=== PATIENT | male | born 1945 | race Caucasian/White ===

== ENCOUNTER 2017-06-30 06:28 | Outpatient (CLI) | payer MEDICARE, BC ==
[~2017-06-30] VITALS: Ht 182.9 cm; Wt 90.9 kg
--- NOTE | ~2017-06-30 | HEMODYNAMI ---
PATIENT:EZRA DAN MEDICAL RECORD: [id number] : 49 LOCATION:[facility] ADMISSION DATE: 06/30/17 Generatedon:06/30/20179:13 Patient name: EZRA DAN Patient #: [id number] SSN: : 1945 Date of study: 06/30/2017 Page: Of Hemodynamic Procedure Report Patient Data Patient Demographics Procedure consent was obtained First Name: EZRA Gender: Male Last Name: SY : 1945 Middle Initial: E Age: 71 year(s) Patient #: [id number] Race: Unknown Additional ID: [id number] Contact details [address]: [address] [place] [address] State: [place] City: [place] Zip code: [address] Admission Admission Data Admission Date: 06/30/2017 Admission Time: 6:28 Procedure Procedure Types Cath Procedure Diagnostic Procedure LHC LHC w/Coronaries Miscellaneous Procedures Moderate Sedation up to 30 minutes Procedure Description Procedure Date Procedure Date: 06/30/2017 Procedure Start Time: 8:54 Procedure End Time: 9:10 Procedure Staff Name Function Tyler Riddle MD Performing Physician Rodriguez Churchill RN Nurse Lanny Banegas RT Monitor Alfred Bruno RT Scrub Radhakristina Allison RT Scrub Procedure Data Cath Procedure Fluoroscopy Diagnostic fluoroscopy Total fluoroscopy Time: 5.2 time: 5.2 min min Diagnostic fluoroscopy Total fluoroscopy dose: 906 dose: 906 mGy mGy Contrast Material Contrast Material Type Amount (ml) Isovue 300 47 Entry Location Entry Primary Successful Side Size Upsize Upsize Entry Closure Keita ccessful Closure Location (Fr) 1 (Fr) 2 (Fr) Remarks Device Remarks Radial Right 6 Fr Mechanical artery Short Compression Estimated blood loss: 5 ml Diagnostic catheters Device Type Used For End Catheter Placement Terumo 5Fr Eleazar 110cm Multi-vessel catheter Angiography Procedure Complications No complications Procedure Medications Medication Administration Route Dosage 0.9% NaCl I.V. 100 ml/hr Oxygen NC 2 l/min Heparin Flush Bag added to field 2 bags (1000units/500ml NS) Lidocaine 2% added to field 20 Radial Cocktail added to field 1 syringe (Verapomil 2mg/Nitro 400mcg/Heparin 1500units) Versed I.V. 2 mg Fentanyl I.V. 25 mcg Radial Cocktail I.A. 1 syringe (Verapomil 2mg/Nitro 400mcg/Heparin 1500units) Hemodynamics Rest Heart Rate: 46 (bpm) Pressure Samples Time Site Value (mmHg) Purpose Heart Use Rate(bpm) 9:00 LV 111/4,10 Snapshot 56 9:00 LV 135/7,15 EDP 51 9:00 AO 121/71(92) Pullback 51 9:00 LV 124/7,11 Pullback 51 Gradients Valve Time Site 1 Site 2 Mean SEP/DFP Peak To Heart Use (mmHg) (sec/min) Peak Rate (mmHg) (bpm) Aortic 9:00 LV AO 4 13 3 51 124/7,11 121/71(92) Calculations Valve P-P Mean Valve Index Valve Source Name Gradient Area Flow (cm2) Aortic 3 4 3 4 Snapshots Pre Cath Intra NCS Post Cath Vital Signs Time Heart Resp SPO2 etCO2 [id number] NIBP (mmHg) Rhythm Pain Sedation Rate (ipm) (%) (mmHg) (mmHg) Status Level (bpm) 8:47:08 46 16 97 0 0 183/89(152) NSR 0 (11) 10(A) , No pain 8:51:56 44 19 98 0 0 162/88(135) NSR 0 (11) 10(A) , No pain 8:56:35 47 20 99 0 0 140/85(111) NSR 0 (11) 10(A) , No pain 9:01:18 52 23 94 0 0 135/75(99) NSR 0 (11) 9(A) , No pain 9:06:00 48 17 93 0 0 134/77(95) NSR 0 (11) 9(A) , No pain 9:11:20 48 14 96 0 0 151/82(112) NSR 0 (11) 10(A) , No pain Medications Time Medication Route Dose Verified Delivered Reason Notes E ffectiveness by by 8:44:43 0.9% NaCl I.V. 100 Rodriguez Rodriguez Per ml/hr Zhao Churchill physician RN RN 8:44:58 Oxygen NC 2 l/min Rodriguez Rodriguez Per Zhao soni RN RN 8:45:17 Heparin Flush added 2 bags Rodriguez Rodriguez used for Bag to Zhao Churchill procedure (1000units/500ml field RN RN NS) 8:45:32 Lidocaine 2% added 20ml Rodriguez Rodriguez for local to vial Lorigan Zhao anesthetic field RN RN 8:45:46 Radial Cocktail added 1 Rodriguez Rodriguez used for (Verapomil to syringe Lorigan Zhao procedure 2mg/Nitro field RN RN 400mcg/Heparin 1500units) 8:56:15 Versed I.V. 2 mg Rodriguez Rodriguez for sedation Zhao Churchill RN RN 8:56:28 Fentanyl I.V. 25 mcg Rodriguez Rodriguez for sedation Zhao Churchill RN RN 8:58:36 Radial Cocktail I.A. 1 Rodriguez Tyler for (Verapomil syringe Zhao Riddle MD vasodilation 2mg/Nitro RN 400mcg/Heparin 1500units) Procedure Log Time Note 8:25:51 Alfred LANDRUM(R) sent for patient. Start room use. 8:32:52 Time tracking: Regular hours 8:32:56 Plan of Care:Hemodynamics will remain stable., Cardiac rhythm will remain stable., Comfort level will be maintained., Respiratory function will remain adequate., Patient/ family verbilizes understanding of procedure., Procedure tolerated without complication., Recovers from procedure without complications.. 8:39:58 Patient received from Pre/Post Procedure Room to [facility] 1 Alert and oriented. Tansferred to table in Supine position. 8:40:00 Warm blankets applied, and josé luis hugger turned on for patient comfort. 8:40:01 Correct patient and procedure confirmed by team. 8:40:03 Signed procedure consent form obtained from patient. 8:40:03 ECG and BP/O2 sat monitors applied to patient. 8:44:43 0.9% NaCl 100 ml/hr I.V. was administered by Rodriguez Churchill RN; Per physician; 8:44:58 Oxygen 2 l/min NC was administered by Rodriguez Churchill RN; Per physician; 8:45:17 Heparin Flush Bag (1000units/500ml NS) 2 bags added to field was administered by Rodriguez Churchill RN; used for procedure; 8:45:32 Lidocaine 2% 20ml vial added to field was administered by Rodriguez Churchill RN; for local anesthetic; 8:45:34 Vital chart was started 8:45:46 Radial Cocktail (Verapomil 2mg/Nitro 400mcg/Heparin 1500units) 1 syringe added to field was administered by Rodriguez Churchill RN; used for procedure; 8:47:21 Rhythm: sinus bradycardia 8:47:32 Full Disclosure recording started 8:47:46 H&P Date Dictated: 06/29/2017 Within 30 days and on chart., H&P Addendum completed by physician on day of procedure. (MUST COMPLETE FOR ALL OUTPATIENTS). 8:47:47 Pre-procedure instructions explained to patient. 8:47:47 Pre-op teaching completed and patient verbalized understanding. 8:48:02 Family in patients room. 8:48:05 Is the patient allergic to Iodine/contrast media? No. 8:48:07 Is patient on blood thinner?Yes 8:48:10 ACC The patient was administered the following blood thiners within the last 24 hours: ACCPlavix 8:48:16 Patient diabetic? No. 8:48:18 Previous problem with sedation/anesthesia? No ? 8:48:19 Snore? Yes 8:48:20 Sleep apnea? Yes 8:48:21 Deviated septum? No 8:48:22 Opens mouth fully? Yes 8:48:23 Sticks out tongue? Yes 8:48:25 Airway obstruction? No ? 8:48:29 Dentures? Yes IN 8:48:34 Pre procedure: right dorsailis pedis pulse 1+ Palpable, but thready & weak; easily obliterated 8:48:36 Modified Jomar's test Ulnar < 7 seconds 8:48:38 Patient pain scale 0/10 ?. 8:48:47 IV patent on arrival in left forearm with 0.9% NaCl at [facility]. 8:48:49 Lab results completed and on chart. 8:48:52 Right Radial & Right Groin area was prepped with chlora-prep and draped in sterile fashion 8:48:54 Alarms reviewed by Raf Trejo 8:48:55 Sharps counted by scrub and verified by R.NEllie 8:48:59 --------ALL STOP TIME OUT------ 8:48:59 Final Timeout: patient, procedure, and site verified with staff and physician. All members of the team are in agreement. 8:49:06 Right Radial & Right Groin site verified by team. 8:49:09 Physical assessment completed. ASA score P 2 - A patient with mild systemic disease as per Tyler Riddle MD. 8:49:13 Sedation plan: IV Moderate Sedation Versed, Fentanyl 8:50:11 Use device set Radial Dx 8:50:12 Acist Syringe opened to sterile field. 8:50:13 Medline Cath Pack opened to sterile field. 8:50:13 Bag Decanter opened to sterile field. 8:50:16 Terumo 6Fr Slender Glidesheath opened to sterile field. 8:50:16 St Jass 260cm J .035 wire opened to sterile field. 8:50:17 Acist Hand Control opened to sterile field. 8:50:17 Acist Manifold opened to sterile field. 8:50:18 Tegaderm 4 x 4 opened to sterile field. 8:50:18 MBrace Wrist Support opened to sterile field. 8:54:43 Procedure started. 8:54:48 Local anesthetic to right radial artery with Lidocaine 2% by Tyler Riddle MD.INITIAL ACCESS ONLY 8:55:26 A 6 Fr Short sheath was inserted into the Right Radial artery 8:55:53 Baseline sample Acquired. 8:56:15 Versed 2 mg I.V. was administered by Rodriguez Churchill RN; for sedation; 8:56:28 Fentanyl 25 mcg I.V. was administered by Rodriguez Churchill RN; for sedation; 8:57:57 A Terumo 5Fr Eleazar 110cm catheter was advanced over the wire and used for Multi-vessel Angiography. 8:58:36 Radial Cocktail (Verapomil 2mg/Nitro 400mcg/Heparin 1500units) 1 syringe I.A. was administered by Tyler Riddle MD; for vasodilation; 8:59:05 Zero performed for pressure channel P1 9:00:34 LV hemodynamics recorded. 9:00:36 LV gram done using PASTRANA 9:00:38 Injector settings: Ml/sec: 5, Volume: 15, 9:01:21 LCA angiography performed. 9:01:24 Injector settings: Ml/sec: 3, Volume: 6, 9:06:42 RCA angiography performed. 9:06:46 Injector settings: Ml/sec: 3, Volume: 6, 9:08:48 Catheter removed. 9:09:19 Terumo TR Band Standard opened to sterile field. 9:09:20 TR band inflated with 10cc of air. 9:09:35 Sheath removed intact; hemostasis achieved with Mechanical Compression to the Right Radial artery. 9:09:38 Procedure ended.(Physican Out) 9:09:48 Fluoroscopy time 05.20 minutes. 9:10:00 Flurop Dose total: 906 9:10:00 Fluoroscopy dose: 906 mGy 9:10:04 Contrast amount:Isovue 300 47ml. 9:10:06 Sharps counted by scrub and verified by R.N. 9:10:06 Insertion/operative site no bleeding no hematoma. 9:10:13 Post right radial artery:stable 9:10:15 Post Procedure Pulses reassessed and unchanged 9:10:18 Post procedure rhythm: unchanged. 9:10:20 Estimated blood loss: 5 ml 9:10:23 Post procedure instruction explained to patient.Patient verbalizes understanding. 9:10:23 Patient needs reinforcement of post procedure teaching. 9:10:37 Procedure type changed to Cath procedure, Diagnostic procedure, LHC, LHC w/Coronaries, Miscellaneous Procedures, Moderate Sedation up to 30 minutes 9:10:38 Procedure and supply charges have been captured, reviewed, submitted and are correct. 9:10:42 Procedure Complication : No complications 9:10:45 Vital chart was stopped 9:10:45 See physician's report for complete and final results. 9:10:53 Report given to Pre/Post Procedure Room. 9:10:56 Patient transfered to Pre/Post Procedure Room with Stretcher. 9:10:58 Procedure ended. 9:10:58 Full Disclosure recording stopped 9:11:04 End room use (Document Last) Device Usage Item Name Manufacture Quantity Catalog Hospital Part Current Minimal Lot# / Number Charge Number Stock Stock Serial# Code Acist Acist 1 81683 337955 [id number] 20 Syringe [employer] Medline Cardinal 1 [id number] 75074 629568 5 Cath Pack Health Bag Microtek 1 979302 97422 687488 5 [employer] Terumo 6Fr Terumo 1 [id number] 905011 644519 627900 [address] J[address] St Jass 1 [id number] 147510 510992 090984 30 260cm J .035 wire Acist Hand Acist 1 08766 590995 470459 159550 5 Control [employer] Inc Acist Acist 1 68071 604900 255726 525330 5 Manifold [employer] Inc Tegaderm 4 3M 1 1626W 860293 400968 800378 5 x 4 MBrace Advanced 1 140-0250-00 713133 55417 981588 5 Wrist Vascular Support [employer] Terumo 5Fr Terumo 1 36-4842 270948 486800 024601 5 Eleazar 110cm catheter Terumo TR Terumo 1 [id number] 268668 435799 40 Band Standard Signature Audit [place] Stage Time Signature Unsigned Intra-Procedure 06/30/2017 Lanny Banegas 9:13:27 AM RT(R) Signatures Monitor : Lanny Banegas RT Signature : Date : Time : [place] [id number] JU[place] SPANN, [place] [id number]
[~2017-06-30 06:28] MED LIST: ASPIRIN325 MG PO; BUSPIRONE HCL7.5 MG PO; CARDURA2 MG PO; CARTIA XT300 MG PO; CELEXA20 MG PO; COREG6.25 MG PO; COZAAR100 MG PO; HYDROCHLOROTHIA25 MG PO; LEXAPRO10 MG PO; MOBIC7.5 MG PO; OMEPRAZOLE20 M1 PO; REVATIO20 MG PO; TIROSINT88 MCG PO; ZANAFLEX4 MG PO; ZOCOR40 MG PO; ZYLOPRIM100 MG PO
[2017-06-30 07:14] LABS: BASOPHILS 0.2 % (0-2); EOSINOPHILS 2.6 % (0-7); HEMATOCRIT 45.2 % (42.0-54.0); HEMOGLOBIN 15.1 g/dL (13.5-17.5); IMMATURE GRANULOCYTES 0.2 % (0-5); LYMPHOCYTES 13.8 % (15-50); MCH 30.1 pg (26.0-34.0); MCHC 33.4 g/dL (31.0-37.0); MONOCYTES 14.2 % (2-11); RBC 5.02 10x6/uL (4.20-6.10); RDW 13.8 % (11.5-14.5); WBC 5.4 10x3/uL (4.8-10.8)
[2017-06-30 07:15] LABS: PLATELET COUNT 195 10x3/uL (130-400)
[2017-06-30 07:22] LABS: CALCIUM 9.4 mg/dL (8.5-10.1); CARBON DIOXIDE 24.7 mmol/L (21.0-32.0); CREATININE - SERUM 1.1 mg/dL (0.6-1.3); POTASSIUM - SERUM 4.7 mmol/L (3.5-5.1)
[2017-06-30 07:24] VITALS: BP 159/77; Ht 182.9 cm; Wt 90.9 kg
[2017-06-30] MEDS ORDERED: VITAMIN D3400 UNI1 PO (07:33)
--- NOTE | 2017-06-30 09:37 | NUR ---
0920 RECEIVED PT FROM PROCESS DEVELOPMENT ENGINEER. PT DENIES ANY C/O CHEST PAIN OR NAUSEA. IV PATENT AND INFSUING PER ORDERS WITH 700 CC LTC OF NS. TR BAND TO RIGHT WRIST IS CDI, NO BLEEDING OR HEMATOMA NOTED AT CATH SITE. WRIST IMMOBILIZER IN PLACE, PT INSTRUCTED TO LIMIT USE OF RIGHT HAND AND NOT TO BEND OR FLEX WRIST AND PT VERBALIZES UNDERSTANDING. AT BEDSIDE, CALL LIGHT IN REACH, PT INSTRUCTED TO CALL FOR NEEDS. 09 DR KAMLESH WISE, SPEAKING WITH PT AND . 0935 TR BAND REMAINS FREE FROM BLEEDING OR HEMATOMA, PT DENIES ANY C/O. SANDWICH AND PO FLUIDS SERVED.
--- NOTE | 2017-06-30 10:10 | NUR ---
0950 PT JOSE M PO FLUIDS AND SANDWICH WITH NO C/O. NO BLEEDING AT CATH SITE. PT DENIES ANY C/O CHEST PAIN. AT BEDSIDE, CALL LIGHT IN REACH.
--- NOTE | 2017-06-30 10:59 | NUR ---
1015 TR BAND DEFLATION STARTED WTIH NO BLEEDING OR HEMATOMA NOTED. WILL CONTINUE TO MONITOR.
--- NOTE | 2017-06-30 11:20 | NUR ---
1045 DC INSTRUCTIONS HAVE BEEN REVIEWED WITH PT AND WHO VERBALIZE UNDERSTANDING. IV DC'D WITH CATH INTACT. TR BAND IS DEFLATED WITH NO BLEEDING OR HEMATOMA NOTED AT SITE. 2X2 AND TEGADERM APPLIED, WRIST IMMOBLIZER IN PLACE. PT HAS VOIDED 600 CC CLEAR YELLOW URINE USING URINAL. 1105 PT AMBULATED TO THE BATROOM, STATES URINATED AGAIN. NO BLEEDING OR HEMATOMA AT CATH SITE. PT DENIES ANY C/O UPON DC. PT ESCORTED TO PRIVATE AUTO VIA WC BY NURSE WITH DRIVING HIM HOME.
== END 2017-06-30 11:05 | disposition home or self-care (01) ==
LOC: D.CATH 06:28
PROVIDERS: Internal Medicine Cardiovascular Disease
DX: I25.10 Atherosclerotic heart disease of native coronary artery without angina pectoris (principal); I42.9 Cardiomyopathy, unspecified; I10 Essential (primary) hypertension; I25.2 Old myocardial infarction; Z01.812 Encounter for preprocedural laboratory examination

== ENCOUNTER → 2017-08-11 16:34 | Outpatient (CLI) | payer MEDICARE, BC ==
[2017-06-30 07:24] VITALS: BMI 27.2
[~2017-08-11 16:34] MED LIST changes: +VITAMIN D3400 UNI1 PO
[2017-08-11 20:29] LABS: CHOL - HDL RATIO 3.7 ratio (2.3-4.9); LDL-HDL RATIO 2.2 ratio (1.5-3.5)
== END | disposition home or self-care (01) ==
LOC: D.LABREF 16:34
PROVIDERS: Internal Medicine Cardiovascular Disease
DX: I25.10 Atherosclerotic heart disease of native coronary artery without angina pectoris (principal)

== ENCOUNTER → 2018-03-17 08:48 | Outpatient (CLI) | payer MEDICARE, BC ==
[2017-06-30 07:24] VITALS: BMI 27.2
== END | disposition home or self-care (01) ==
LOC: D.LAB 08:48 → D.NM 10:15
DX: E83.52 Hypercalcemia (principal)

== ENCOUNTER 2018-10-09 09:21 | Emergency (ER) | payer MEDICARE, BC ==
[~2018-10-09] VITALS: Ht 182.9 cm; Wt 97.7 kg
[2018-10-09 09:24] VITALS: Ht 182.9 cm; Wt 97.7 kg
[2018-10-09] MEDS ORDERED: NAPROSYN500 MG PO (10:33)
[2018-10-09 10:46] VITALS: BP 142/89
== END 2018-10-09 10:46 | disposition home or self-care (01) ==
LOC: D.ER 09:21
DX: S62.616A Displaced fracture of proximal phalanx of right little finger, initial encounter for closed fracture (principal); W10.9XXA Fall (on) (from) unspecified stairs and steps, initial encounter; Y93.89 Activity, other specified; Y92.019 Unspecified place in single-family (private) house as the place of occurrence of the external cause